=== PATIENT | male | born 1990 | race African-American/Black ===

== ENCOUNTER 2017-08-29 18:46 | Emergency (ER) | payer SELFPAY ==
--- NOTE | 2017-08-29 19:42 | RAD ---
TWO VIEWS CHEST: 08/29/17 HISTORY: Chest pain. PA and lateral views of the chest is obtained. The lungs are well aerated. No evidence of active of intrathoracic disease. No evidence of effusions, pneumonia or pneumothorax seen. IMPRESSION: Normal two views chest. POS: [facility]
== END 2017-08-29 20:10 | disposition left against medical advice (07) ==
LOC: EEVIPCON 18:46 → ERS 18:46
DX: R07.9 Chest pain, unspecified (principal); F32.9 Major depressive disorder, single episode, unspecified; F41.9 Anxiety disorder, unspecified
CPT/HCPCS: 71020; 93005

== ENCOUNTER 2017-11-10 22:47 | Emergency (ER) | payer SELFPAY ==
[2017-11-11] MEDS ORDERED: Ketorolac Tromethamine 30 MG/ML VIAL ONE (00:38)
--- NOTE | 2017-11-11 08:01 | RAD ---
LUMBAR SPINE 3 VIEWS: COMPARISON: None. INDICATION: Back pain. FINDINGS: There is no evidence of compression fracture or subluxation identified. The patient is rotated which does limit assessment of alignment on the lateral projection. Slight right convexity curvature pres ent. IMPRESSION: No acute compression fracture of the lumbar spine. POS: [facility]
== END 2017-11-11 01:52 | disposition home or self-care (01) ==
LOC: ERS 22:47
DX: S39.012A Strain of muscle, fascia and tendon of lower back, initial encounter (principal); F41.9 Anxiety disorder, unspecified; F32.9 Major depressive disorder, single episode, unspecified; X50.1XXA Overexertion from prolonged static or awkward postures, initial encounter
CPT/HCPCS: 72100; 96372; J1885

== ENCOUNTER 2018-03-12 13:26 | Emergency (ER) | payer SELFPAY ==
[2018-03-12] MEDS ORDERED: Mag-Al 1200 mg/1200 mg/30 ML UDCUP ONE (14:38)
[2018-03-12] MEDS ORDERED: Lidocaine Viscous Sol 2% 15 ml UD Cup ONE (14:38)
== END 2018-03-12 15:17 | disposition home or self-care (01) ==
LOC: ERS 13:26
DX: L20.9 Atopic dermatitis, unspecified (principal); K21.9 Gastro-esophageal reflux disease without esophagitis
CPT/HCPCS: 93005

== ENCOUNTER 2022-11-24 11:26 | Emergency (ER) | payer SELFPAY ==
[2022-11-24] MEDS ORDERED: Acetaminophen 500 MG TAB ONE (15:16)
[2022-11-24] MEDS ORDERED: Ibuprofen 200 MG TAB ONE (15:16)
== END 2022-11-24 15:58 | disposition home or self-care (01) ==
LOC: ERS 11:26
DX: M54.6 Pain in thoracic spine (principal); G89.29 Other chronic pain
CPT/HCPCS: 71045; 93005

== ENCOUNTER 2023-12-04 14:44 | Emergency (ER) | payer SELFPAY | END 2023-12-04 16:31 | disposition home or self-care (01) | LOC: ERS 14:44 | DX: M79.604 Pain in right leg (principal) | CPT/HCPCS: 99283 ==